=== PATIENT | male | born 1940 | race Caucasian/White ===

== ENCOUNTER → 2018-07-28 | Outpatient (CLI) | payer MEDICARE ==
[~2018-07-28] MED LIST: ALBUTEROL SULFATE 0.083% 2.5 MG/3 ML INH IH ONE
== END | disposition home or self-care (01) ==
LOC: RESP 14:46
PROVIDERS: ATTEND Internal Medicine Cardiovascular Disease
DX: R06.02 Shortness of breath (principal); Z87.09 Personal history of other diseases of the respiratory system; Z79.899 Other long term (current) drug therapy
CPT/HCPCS: 94060; 94729